=== PATIENT | male | born 1955 | race Two or more races ===

== ENCOUNTER 2018-03-15 18:04 | Emergency (ER) | payer OTHER ==
[~2018-03-15] VITALS: Ht 160 cm; Wt 85.3 kg
[2018-03-15] MEDS ORDERED: Surgicel 4in x 8in TOPIC ONE (18:30)
--- NOTE | 2018-03-15 18:50 | Emergency Room Report ---
History of Present Illness General Chief Complaint: Lower Extremity Injury Source: Patient Present Illness HPI 62yo M History of prediabetes, no use of blood thinners, presents with right great toe pain after a machine fell on his foot at work. He was wearing socks and shoes, but bled from the toe. He does not want any sutures placed. He reports mild pain, worse with touching the toe. Allergies: Coded Allergies: No Known Allergies (Unverified , 03/15/18) Patient History Past Medical History: see triage record Reviewed Nursing Documentation: PMH: Agreed; PSxH: Agreed Nursing Documentation-PMH Past Medical History: No History, Except For Hx Cardiac Problems: Yes - high cholesterol Hx Hypertension: Yes Hx Diabetes: Yes Review of Systems All Other Systems: negative except mentioned in HPI Physical Exam Vital Signs Date Time Temp Pulse Resp B/P (MAP) Pulse Ox O2 Delivery O2 Flow Rate FiO2 03/15/18 18:11 98.4 66 18 139/90 98 Room Air 98.4 Sp02 EP Interpretation: reviewed, normal General Appearance: no apparent distress, alert, non-toxic Head: normocephalic Eyes: bilateral eye normal inspection, bilateral eye PERRL, bilateral eye EOMI ENT: normal ENT inspection, hearing grossly normal, normal pharynx, no angioedema, normal voice, moist mucus membranes Neck: normal inspection, full range of motion, supple, supple/symm/no masses Respiratory: chest non-tender, lungs clear, normal breath sounds, chest symmetrical, palpation of chest normal Cardiovascular #1: normal peripheral pulses, regular rate, rhythm Cardiovascular #2: 2+ radial (R), 2+ radial (L) Gastrointestinal: normal inspection, non tender, soft, no mass, no guarding, no rebound Rectal: deferred Genitourinary: normal inspection, no CVA tenderness Musculoskeletal: back normal, gait/station normal, normal range of motion, non- tender, no calf tenderness Neurologic: alert, responsive, 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, motor strength/tone normal, sensory intact, speech normal Psychiatric: judgement/insight normal, mood/affect normal Skin: normal color, no rash, warm/dry, normal turgor, laceration - 2cm linear skin tear over R great toe dorsum prox to nail bed, as well as 2nd laceration 1cm distal to toe nail, no active bleeding Lymphatic: no adenopathy Medical Decision Making Diagnostic Impression: Primary Impression: Skin tear Additional Impression: Contusion ER Course Patient had socks on, but no injury to sole of foot, so doubt psuedomonas inoculation, was wearing socks, is pre-diabetic, will dc with keflex, f/u podiatry. Wound treated with surgicel after irrigation, patient did not want any sutures placed, largely skin tear more than laceration anyhow, so able to manage bleeding with surgicel. Other X-Ray Diagnostic Results Other X-Ray Diagnostic Results : X-Ray ordered: R foot # of Views/Limited Vs Complete: Complete Indication: Pain EP Interpretation: Yes Interpretation: no dislocation, no soft tissue swelling, no fractures Impression: No acute disease Electronically Signed by: Yudi Verdin MD Last Vital Signs Date Time Temp Pulse Resp B/P (MAP) Pulse Ox O2 Delivery O2 Flow Rate FiO2 03/15/18 18:38 98.4 03/15/18 18:11 66 18 139/90 98 Room Air Disposition: HOME, SELF-CARE Condition: Stable Scripts Cephalexin* (KEFLEX*) 500 Mg Capsule 500 MG ORAL EVERY 6 HOURS for 7 Days, #28 CAP Prov: YUDI VERDIN M.D 03/15/18 Ibuprofen* (MOTRIN*) 600 Mg Tablet 600 MG ORAL Q8H PRN for For Pain, #20 TAB 0 Refills Prov: YUDI VERDIN M.D 03/15/18 YUDI VERDIN M.D Mar 15, 2018 18:50
[2018-03-15] MEDS ORDERED: CEPHALEXIN500 MG ORAL (19:02)
[2018-03-15] MEDS ORDERED: IBUPROFEN600 MG ORAL (19:02)
--- NOTE | 2018-03-15 19:06 | Diagnostic Imaging Report ---
EXAM: XR Right Foot Complete, 3 Views CLINICAL HISTORY: Trauma to big toe TECHNIQUE: Frontal, lateral and oblique views of the right foot. COMPARISON: No relevant prior studies available. FINDINGS: Bones/joints: Fracture of the tip of the first distal phalanx. Degenerative changes of the first metatarsal phalangeal joint. Inferior calcaneal bone spur. No dislocation. Some spurring is noted at the first cuneiform navicular joint. Soft tissues: Unremarkable. No radiopaque foreign body. IMPRESSION: Fracture of the tip of the first distal phalanx.
[2018-03-15 19:17] VITALS: BP 139/90
== END 2018-03-15 19:17 | disposition home or self-care (01) ==
LOC: EMR 18:29
DX: S91.111A Laceration without foreign body of right great toe without damage to nail, initial encounter (principal); W31.9XXA Contact with unspecified machinery, initial encounter; Y92.59 Other trade areas as the place of occurrence of the external cause; Y99.0 Civilian activity done for income or pay; I10 Essential (primary) hypertension; E11.9 Type 2 diabetes mellitus without complications
CPT/HCPCS: 99284